=== PATIENT | male | born 1970 | race Caucasian/White ===

== ENCOUNTER 2019-04-20 11:15 | Emergency (ER) | payer BC, OTHER ==
[2019-04-20 11:43] VITALS: BP 139/98; PULSE 76; TEMP 98.3; BMI 36.6
[2019-04-20] MEDS ORDERED: KETOROLAC TROMETHAMINE 60 MG/2 ML VIAL IM ONE (11:50)
[2019-04-20] MEDS ORDERED: hydrOXYzine PAMOATE 50 MG CAPSULE (FP) PO ONE (11:50)
--- NOTE | 2019-04-20 11:50 | PDOC ---
History of Present Illness - General Chief Complaint: Pain Stated Complaint: LEFT HIP PAIN Time Seen by Provider: 04/20/19 11:48 - History of Present Illness Initial Comments: 04/20/19 12:52 Chief complaint: Pain, numbness, tingling buttock and thigh left HPI: Above symptoms for several days, worsening. History of lumbar disc disease with herniated disks L2-3-4 5. Sees pain management for periodic injections. No surgery. Similar symptoms in the past, but this is more severe. Having difficulty walking. Last analgesic taken was at 2 AM, nabumetone Review of systems: Denies injury or other trauma, although admits working out with weights in the gym regularly. Denies fever/chills, headache, URI symptoms , sore throat, cough, chest pain, shortness of breath, abdominal pain, nausea, vomiting, diarrhea, visual or focal neurologic symptoms. Remainder of systems reviewed and negative Past medical history: Seasonal allergies, COPD, mild hypertension. Medications include nabumetone, gabapentin, hydrochlorothiazide, Flonase, montelukast, and Breo. Chronic low back pain, lumbar disc disease, MRI with disc disease, bulging disks at multiple levels. 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 Denies tobacco alcohol or drugs. Stable home. Family history: Reviewed and noncontributory including early coronary artery disease, metabolic diseases including diabetes, and cancer Physical exam: Alert and oriented moderately obese but appears otherwise healthy , complaining of pain right lower back, buttock, and anterolateral thigh. Mild gait impairment due to pain. Afebrile, vital signs stable PERRLA, fundi benign, ENT clear Neck supple without bruit mass or nodes Chest clear CV regular without murmur rub or gallop pulses full and symmetric no JVD or edema no bruits Abdomen soft nontender without mass organomegaly. No CVAT LS spine: There is straightening of the normal lumbar lordosis. There is no point tenderness or deformity of the vertebral bodies. There is no visible or palpable sign of inflammation. There is a moderate tilt to the left side. Straight leg raising is negative. There are no distal sensory or motor deficits. DTRs are 3+ and symmetric. Pulses are full and symmetric. There is no perineal anesthesia, decreased sphincter tone, and cremasteric is present. Neurological: As noted above. In addition, cranial nerves are intact. No focal sensory or motor deficits. Strength full and symmetric. Gait mildly impaired due to pain Extremities no CCE Skin clear, no rash, adequate turgor and wet mucous membranes Impression: Aggravation of low back pain, lumbar disc disease, radiculopathy in the L4-L5 distribution. Pain numbness and tingling are present, but no demonstrable sensory or motor deficits. Plan: Rest, analgesics, hold off on going to the gym, and avoid sitting in a chair or car. Heat and medications as directed. Follow-up account installation specialist if no improvement. Adequately ambulatory and with adequate pain control at discharge to follow-up as directed. Referred to Dr. Estrada Past History - Past Medical History Allergies/Adverse Reactions: Allergies Allergy/AdvReac Type Severity Reaction Status Date / Time No Known Allergies Allergy Unverified 04/20/19 11:18 Home Medications: Ambulatory Orders Fluticasone Prop 0.05% Nasal [Flonase -] 1 - 2 spray NS DAILY 04/20/19 Fluticasone/Vilanterol [Breo Ellipta 200-25 Mcg INH] 1 each IH DAILY 04/20/19 Gabapentin 600 mg PO HS 04/20/19 Hydrochlorothiazide 25 mg PO DAILY 04/20/19 Ibuprofen 800 mg PO TID #30 tablet 04/20/19 Montelukast Sodium [Singulair] 10 mg PO DAILY 04/20/19 Oxycodone HCl/Acetaminophen [Percocet 5-325 mg Tablet] 1 - 2 tab PO Q6H PRN #20 tab MDD 6 04/20/19 hydrOXYzine PAMOATE [Vistaril -] 1 - 2 tab PO TID #20 capsule 04/20/19 Asthma: Yes COPD: Yes Other medical history: SLEEP APNEA,LOWER BACK BULGING DISC - Psycho Social/Smoking Cessation Hx Smoking History: Never smoked Information on smoking cessation initiated: No Hx Alcohol Use: No Drug/Substance Use Hx: No *Physical Exam - Vital Signs Last Vital Signs Temp Pulse Resp BP Pulse Ox 98.3 F 76 20 139/98 97 04/20/19 11:18 04/20/19 11:18 04/20/19 11:18 04/20/19 11:18 04/20/19 11:18 Discharge - Discharge Information Problems reviewed: Yes Clinical Impression/Diagnosis: Lumbar disc disease Condition: Improved Disposition: HOME - Admission No - Additional Discharge Information Prescriptions: hydrOXYzine PAMOATE [Vistaril -] 1 - 2 tab PO TID #20 capsule Ibuprofen 800 mg PO TID #30 tablet Oxycodone HCl/Acetaminophen [Percocet 5-325 mg Tablet] 1 - 2 tab PO Q6H PRN #20 tab MDD 6 PRN Reason: Severe Pain - Follow up/Referral Referrals: Rosendo Estrada MD [Staff Physician] - 1 week - Patient Discharge Instructions Patient Printed Discharge Instructions: DI for Lumbar Radiculopathy Additional Instructions: Rest, heat to the back and buttock areas, rest. Avoid sitting in a chair or in a car. Lie on a firm flat surface or in a recliner. Medication as directed. Symptoms should gradually subside in the course of 4 to 5 days If pain worse, return to the emergency room. Otherwise follow-up with account installation specialist for further evaluation and treatment. - Post Discharge Activity
[2019-04-20] MEDS ORDERED: KETOROLAC TROMETHAMINE 60 MG/2 ML VIAL ONE (11:52)
[2019-04-20] MEDS ORDERED: hydrOXYzine PAMOATE 25 MG CAPSULE (FP) PO ONE (11:52)
== END 2019-04-20 12:57 | disposition home or self-care (01) ==
LOC: FER 11:15
PROC: 3E0233Z Introduction of Anti-inflammatory into Muscle, Percutaneous Approach (ICD-10-PCS; principal; 2019-04-20)
DX: M51.9 Unspecified thoracic, thoracolumbar and lumbosacral intervertebral disc disorder (principal); J45.909 Unspecified asthma, uncomplicated; J44.9 Chronic obstructive pulmonary disease, unspecified; M51.36 Other intervertebral disc degeneration, lumbar region; G47.30 Sleep apnea, unspecified
CPT/HCPCS: 99282-25